=== PATIENT | female | born 1965 | race Caucasian/White ===

== ENCOUNTER 2024-11-15 14:59 | Emergency (ER) | payer OTHER | END 2024-11-15 18:00 | disposition home or self-care (01) | LOC: JP.ED 14:59 | DX: M54.50 Low back pain, unspecified (principal); G89.29 Other chronic pain; Z79.899 Other long term (current) drug therapy; Z79.51 Long term (current) use of inhaled steroids | CPT/HCPCS: 51798; 72131; 76377; 96374; 99284; A9270; J1171 ==

== ENCOUNTER 2025-01-11 10:15 | Emergency (ER) | payer OTHER | END 2025-01-11 12:10 | disposition home or self-care (01) | LOC: JP.ED 10:15 | DX: S83.411A Sprain of medial collateral ligament of right knee, initial encounter (principal); Z79.899 Other long term (current) drug therapy; W11.XXXA Fall on and from ladder, initial encounter; Y93.39 Activity, other involving climbing, rappelling and jumping off | CPT/HCPCS: 73562-26-RT; 73562-RT; 99283 ==